=== PATIENT | male | born 1960 | race Native Hawaiian/Other Pacific Islander ===

== ENCOUNTER 2024-08-23 10:08 | Emergency (ER) | payer BC, SELFPAY ==
[2024-08-23 10:25] VITALS: BP 158/88; PULSE 75; RESP 16; TEMP 37; O2SAT 98
--- NOTE | 2024-08-23 10:52 | W.ED.GENAD ---
Discharge Plan Disposition Patient Disposition: Home Condition: Good Discharge Details Clinical Impression: Hand swelling, Arthritis of hand, Foreign body hand Primary Care Provider: Jojo,Local ED Provider: Isabel Saunders Home Meds and New Rx's Prescriptions: Continued metoprolol succinate 50 mg tablet extended release 24 hr 50 mg PO DAILY lisinopril 40 mg tablet 40 mg PO DAILY clopidogrel 75 mg tablet 75 mg PO DAILY atorvastatin 40 mg tablet 40 mg PO DAILY Discharge Instructions Instructions: Osteoarthritis Additional Instructions: Your x-ray shows significant arthritis at the base of the thumb which may be was causing some swelling in the hand, particularly after having a busy day at work. It may also be exacerbated with the small metal fragments we discussed that I do not note any evidence to suggest infection at this point. You have 2 small metal splinters and the tip of the index finger but given location, I feel that they should be removed by a hand surgeon if at all. Again, these do not seem to be causing any type of infection or issue at this point. Please encourage rest, ice, elevation. Tylenol and ibuprofen as needed for discomfort. Please reapply the brace when at home as this will also help with swelling. Please follow-up with primary care in 1 to 2 weeks for reevaluation. If you develop fever/chills, increased pain, redness of the skin or other new/worsening symptom please seek care to once again. Discharge Data Discharge Date/Time-TO BE ENTERED AT DEPARTURE: 08/23/24 13:33 HPI General Date/Time Provider Initiated Documentation: 08/23/24 10:31. Limitations to Documentation: no limitations. Information obtained by: patient, family (mom) and RN notes reviewed. History of Present Illness 63 year old M presents to the emergency department with the chief complaint of left hand swelling, described as moderate, Quality is described as aching (swelling, no real pain), and is localized to the left and upper extremity. Patient started experiencing this day(s) (6) and it has been constant. other things that improve symptom(s), (elevation) Other factors that worsen symptoms (dependent position) . Patient notes no other symptoms.. Patient did receive the following treatments prior to arrival, none Related Data Home Medications ?Medication ?Instructions ?Recorded ?Confirmed atorvastatin 40 mg tablet 40 mg PO DAILY 08/23/24 08/23/24 clopidogrel 75 mg tablet 75 mg PO DAILY 08/23/24 08/23/24 lisinopril 40 mg tablet 40 mg PO DAILY 08/23/24 08/23/24 metoprolol succinate 50 mg 50 mg PO DAILY 08/23/24 08/23/24 tablet,extended release 24 hr Allergies Allergy/AdvReac Type Severity Reaction Status Date / Time No Known Allergies Allergy Unverified 08/23/24 10:34 General Stated Complaint: GenMedical SUSHANT: 4 Review of Systems Constitutional Constitutional: Reports as per HPI, Denies chills, Denies fever(s), Denies headache(s) and Denies weakness ENT Ears, Nose, Mouth, and Throat: Denies headache(s) Cardiovascular Cardiovascular: Reports as per HPI Respiratory Respiratory: Reports as per HPI and Denies cough Musculoskeletal Musculoskeletal: Reports as per HPI and Denies tingling Integumentary/Breasts Skin/Breast: Reports as per HPI, Denies rash and Denies wounds Neurologic Neurologic: Reports as per HPI, Denies headache(s), Denies tingling, Denies paresthesias and Denies weakness Exam Const General: cooperative, healthy appearing, comfortable, no acute distress, well developed and well groomed Nutritional Appearance: average body habitus and well nourished Orientation: alert and awake Resp Effort & Inspection: normal respiratory effort, able to speak in complete sentences and no respiratory distress Cardio Rate: regular rate Rhythm: regular rhythm Skin General skin exam: no rashes or lesions noted Lesions: no lesions Rashes: no rashes Trauma: no lacerations or abrasions Neuro General: patient alert and patient awake Cognition: normal cognition Speech: speech normal Gait: normal gait Motor: muscle tone normal throughout Sensory Exam: no sensory deficits noted Extrem Hand/finger images: 1. Area of swelling. Seems to be more pronounced on the dorsal side and along the radial aspect of the hand. He has 2+ distal pulse. Sensation is intact. Intact capillary refill. He is good range of motion despite the swelling. Swelling does extend into the digits some. 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 No clubbing or change in the nails. He has no swelling that extends into the forearm or upper arm. No palpable cord or suggestion of DVT. No discoloration. No erythema,, Course Vital Signs Vital signs: Vital Signs Temperature 37 C 08/23/24 10:25 Pulse 75 08/23/24 10:25 Respiratory Rate 16 08/23/24 10:25 Blood Pressure 158/88 H 08/23/24 10:25 Pulse Oximetry 98 08/23/24 10:25 Temperature 37 C 08/23/24 10:25 Pulse 75 08/23/24 10:25 Respiratory Rate 16 08/23/24 10:25 Blood Pressure 158/88 H 08/23/24 10:25 Pulse Oximetry 98 08/23/24 10:25 Oxygen Delivery Method Room Air 08/23/24 10:25 Oxygen Flow Rate 0 08/23/24 10:25 Pain Level 5 08/23/24 10:25 Medical Decision Making Patient aki 63 year old male presenting today with c/c of left hand swelling that began 5 days ago. Patient works with wood and metal, had questioned if he had initially gotten a metal splinter near the fifth digit. States that he has not had any significant pain but since the initial swelling was noted at the fifth digit, swelling then has become more circumferential and diffuse about the hand. The swelling does improve at night, can worse during the day, here with dependent position. He denies any significant pain but states that the hand does feel quite tight and that it is difficult to do fine motor movements particular at the end of the day. Denies any fevers or chills. Was evaluated by family friend who is a physician prescribed him antibiotics which she took and completed the course. He denies any fevers or chills. No erythema, warmth or significant discomfort. Patient reports he is up-to-date on his tetanus. On exam, patient appears nontoxic. He is resting comfortably no acute distress, hemodynamically stable. Exam the left upper extremity significant for swelling along the dorsal aspect of the hand. He is 2+ pulses. Intact capillary refill. Sensation is intact. He has good range of motion. At this point, while the hand is swollen does not seem to be significantly limiting his range of motion. XR reviewed by radiologist: There is a metallic foreign body splinter in the soft tissues 2nd-index finger. This is located on the volar aspect of the distal finger at the distal phalanx level and measures approximately 2 mm length. On 1 of these 3 images there is a suggestion of a 2nd tiny radiopaque foreign body in the same region. There are no fractures. Multilevel degenerative changes are noted in the hand and wrist, most prominent at the 1st carpometacarpal joint and in the PIP joint of the 4th-ring finger and DIP joints. IMPRESSION: Second-index finger radiopaque foreign bodies as described above. Discussed his findings with the patient. I did note some significant osteoarthritis at the base of the thumb as well. Discussed this with the patient.. His exam is not consistent with infectious etiology. He is largely nontender, seems to be more isolated swelling. I believe it is likely associated with his osteoarthritis and overworking the hand based on his description of what he had done the day before starting the swelling. However, I also considered this being associated with the noted foreign bodies. However, I did reevaluate the hand and not appreciate any swelling, erythema or tenderness over these areas and hesitant to open the finger and try to find these if these are not the cause, I am concerned I may cause more harm than good. I encouraged that he try to elevate the extremity and use a brace which she has at home. Does not see any indication to suggest this is a vascular issue. No indication to suggest rheumatologic issue as the patient has not had something similar like this before. He has no exposures that he is aware of. Change encouraged supportive care and follow-up with primary care once he is home next week in [place] which patient is agreement with. Return precautions were discussed. All of his questions and concerns were addressed and he is in agreement this plan. This documentation was generated using [employer] dictation system, please disregard any oddities of phrase or misspellings. After breathing treatment Quality:SDOH Health Related Social Needs: No Data to Display PFSH All Active Problems (Updated 08/23/24 @ 12:38 by KIMBERLY Kruger) Foreign body hand (Acute) Arthritis of hand (Acute) Hand swelling (Acute) Social History Smoking/Tobacco Use Status: Never Smoking risk assessment performed?: Yes Alcohol Intake: current Alcohol Intake frequency: a few times a week Alcohol type: beer Drug use: Never Substance use type: does not use Housing: house Do you feel safe at home: Yes Do you feel safe in your relationship?: Yes
--- NOTE | 2024-08-23 11:04 | DI.RAD_ITS ---
Exam(s) XR HAND LT COMPLETE EXAM: XR HAND LT COMPLETE CLINICAL HISTORY: swelling, possible metal splinter. TECHNIQUE: 2D digital imaging was performed. COMPARISON: No exams were available for comparison FINDINGS: 3 views There is a metallic foreign body splinter in the soft tissues 2nd-index finger. This is located on t he volar aspect of the distal finger at the distal phalanx level and measures approximately 2 mm blanca th. On 1 of these 3 images there is a suggestion of a 2nd tiny radiopaque foreign body in the same r egion. There are no fractures. Multilevel degenerative changes are noted in the hand and wrist, most promin ent at the 1st carpometacarpal joint and in the PIP joint of the 4th-ring finger and DIP joints. IMPRESSION: Second-index finger radiopaque foreign bodies as described above. DATA REPOSITORY: RADIATION DOSE DELIVERED:
[2024-08-23 12:03] VITALS: BP 131/83; PULSE 62; RESP 20; TEMP 36.6; O2SAT 96
== END 2024-08-23 13:33 | disposition home or self-care (01) ==
PROVIDERS: Emergency Provider Physician Assistant
DX: R22.32 Localized swelling, mass and lump, left upper limb (principal); M19.042 Primary osteoarthritis, left hand; M79.5 Residual foreign body in soft tissue
CPT/HCPCS: 99283; 73130